=== PATIENT | female | born 1945 | race Caucasian/White ===

== ENCOUNTER → 2021-01-29 15:26 | Outpatient (CLI) | payer MEDICARE, OTHER, SELFPAY | PROVIDERS: PCP Family Medicine; Visit Provider Physician Assistant | DX: N30.10 Interstitial cystitis (chronic) without hematuria (principal) | CPT/HCPCS: 87086 ==

== ENCOUNTER → 2021-03-13 12:35 | Outpatient (CLI) | payer MEDICARE, OTHER, SELFPAY | PROVIDERS: PCP Physician Assistant; Visit Provider Physician Assistant | DX: N30.10 Interstitial cystitis (chronic) without hematuria (principal); R30.0 Dysuria | CPT/HCPCS: 87077; 87086 ==

== ENCOUNTER → 2021-03-14 10:30 | Outpatient (CLI) | payer MEDICARE, OTHER, SELFPAY ==
[2021-03-14 20:04] LABS: BUN Creatinine Ratio 19.4 (6-22); Blood Urea Nitrogen 26 mg/dL (7-17); Carbon Dioxide 28 mmol/L (22-32); Chloride 105 mmol/L (98-107); Estimated Glomerular Filt Rate 38.4 mL/min (>60); Glucose 104 mg/dL (80-110); HEMOLYSIS < 15 (0-50); Potassium 4.3 mmol/L (3.4-5.1); Sodium 139 mmol/L (137-145)
[2021-03-14 20:07] LABS: Cholesterol 146 mg/dL (140-199); HDL Cholesterol 30 mg/dL (40-60); LDL Cholesterol Calculated 87 mg/dL (<100); Triglycerides 147 mg/dL (35-150)
[2021-03-14 20:09] LABS: Add Manual Diff / Slide Review NO; Basophils Absolute Auto 0 /uL (0-100); Basophils Percent Auto 0.8 % (0-2); Eosinophils Absolute Auto 100 /uL (0-450); Eosinophils Percent Auto 3.4 % (2-4); Hematocrit 35.2 % (36-46); Hemoglobin 12.2 g/dL (12.0-16.0); Lymphocytes Absolute Auto 900 /uL (1100-4500); Lymphocytes Percent Auto 25.1 % (25-40); Mean Corpuscular HGB Conc 34.6 % (30-36); Mean Corpuscular Volume 92.4 fL (80-100); Monocytes Absolute Auto 400 /uL (0-900); Neutrophils Absolute Auto 2200 /uL (1500-7000); Neutrophils Percent Auto 59.7 % (50-75); Platelet Count 209 X10^3/uL (150-400); Red Blood Cell Count 3.81 X10^6/uL (4.0-5.2); Red Cell Distribution Width 14.2 % (11.6-14.8); White Blood Cell Count 3.8 X10^3/uL (4.5-11.0)
[2021-03-14 20:12] LABS: NT-proBNP (BNP-Adult 18+) 2960 pg/mL (<450)
[2021-03-14 20:33] LABS: Thyroid Stimulating Hormone 1.48 uIU/mL (0.47-4.68)
== END ==
PROVIDERS: PCP Physician Assistant; Visit Provider Internal Medicine Cardiovascular Disease
DX: R06.00 Dyspnea, unspecified (principal); I10 Essential (primary) hypertension; I48.0 Paroxysmal atrial fibrillation; R06.02 Shortness of breath; I65.29 Occlusion and stenosis of unspecified carotid artery; D53.9 Nutritional anemia, unspecified; E78.2 Mixed hyperlipidemia
CPT/HCPCS: 80048; 80061; 83880; 84443; 85025

== ENCOUNTER → 2021-03-18 10:43 | Outpatient (CLI) | payer MEDICARE, OTHER, SELFPAY ==
[2021-03-18 20:00] LABS: COVID19 - ORCAS (NP or Nasal) Negative (Negative)
[2021-03-20 08:59] LABS: Fecal Immunochemical Test Negative (Negative)
== END ==
PROVIDERS: Physician Assistant; PCP Physician Assistant; Visit Provider Family Medicine
DX: Z20.822 Contact with and (suspected) exposure to COVID-19 (principal); D53.9 Nutritional anemia, unspecified; R06.02 Shortness of breath
CPT/HCPCS: 82274; U0003

== ENCOUNTER → 2021-03-20 09:26 | Outpatient (CLI) | payer MEDICARE, OTHER, SELFPAY ==
--- NOTE | 2021-03-21 18:27 | DI.NM.S_ITS ---
DATE OF SERVICE: 03/20/2021 PROCEDURE PERFORMED: Pharmacologic vasodilator stress and rest myocardial perfusion study with gating to assess ejection fraction and regional wall motion. ORDERING PROVIDER: Dr. Preston Jean. INDICATIONS: The patient is a 75-year-old morbidly obese female with chronic atrial fibrillation and progressive exertional dyspnea. CARDIAC STRESS: Per protocol, 0.4 mg of regadenoson was infused with a normal hemodynamic response. With this, she developed moderate dyspnea and 5/10 substernal chest discomfort that resolved in early recovery. Her resting ECG shows atrial fibrillation at [address] segments. With stress, there are no significant ST-segment shifts or arrhythmias beyond her baseline atrial fibrillation. 26.7 millicuries of technetium-99m Myoview was injected per protocol and she was imaged 20 minutes later using a gated SPECT acquisition protocol. The following day, she returned and was reinjected with an additional 26.9 millicuries of technetium-99m Myoview and was imaged 30 minutes later, again using a gated SPECT acquisition protocol. FINDINGS: 1. Raw data: There is fairly poor myocardial tracer uptake with marked breast attenuation artifact that clearly produces significant attenuation artifact. There visually appears to be significantly increased lung uptake with a lung/heart ratio of 0.49. The TID ratio was normal at 0.93. Unfortunately, the patient was unable to lie prone to assess for attenuation artifact. 2. Quantitated gated SPECT: Post-stress ejection fraction is estimated at 90%, although visually appears to likely be closer to 70 to 80% without any obvious focal wall motion abnormalities although image quality is quite poor. The resting ejection fraction is estimated at 88% and appears similar to the post-stress ejection fraction with a normal resting end-diastolic volume of 90 mL. 3. Myocardial perfusion imaging: Post-stress supine images are of fairly poor quality and show a mild perfusion defect in the mid and distal anterior wall, encompassing the majority of the distal left ventricle that would be suggestive of breast attenuation artifact. In addition, there is a mild perfusion defect throughout the inferior wall which could be diaphragmatic attenuation artifact. Unfortunately, the patient could not lie prone and therefore assessment for attenuation artifact is lacking. The resting images show some improvement in perfusion in both the anterior and more notably in the inferior segments, although a slight perfusion defect remains present in both, but likely non-specific given the poor image quality. IMPRESSION: 1. Abnormal myocardial perfusion study but with markedly reduced specificity because of poor image quality and significant attenuation artifact. 2. Partially reversible anterior defect and predominantly reversible inferior defect that could represent myocardial ischemia although specificity is quite low because of the poor image quality and there is likely significant attenuation artifact contributing to these perfusion defects. 3. Normal left ventricular systolic size and function without any obvious focal wall motion abnormality. There is fairly prominent increased lung uptake that can be a sign of pulmonary congestion; clinical correlation is recommended. 4. Provocation of dyspnea and substernal chest discomfort with regadenoson infusion but no ECG changes of ischemia or change in her baseline atrial fibrillation. Kiki Cole - MICHAEL/isela/phill doc#: [id number]/job#: [id number] dd: 03/21/2021 17:47:00 dt: 03/21/2021 18:10:00 DICTATING MD/COPIES TO: Chacorta Roldan MD; Seamus Jean MD COPIES MNE: STANLEY;
== END ==
PROVIDERS: PCP Physician Assistant; Referring Provider Internal Medicine Cardiovascular Disease; Visit Provider Internal Medicine Cardiovascular Disease
DX: R94.39 Abnormal result of other cardiovascular function study (principal); R06.00 Dyspnea, unspecified; I48.20 Chronic atrial fibrillation, unspecified; E66.01 Morbid (severe) obesity due to excess calories; N39.0 Urinary tract infection, site not specified; R10.9 Unspecified abdominal pain; K59.09 Other constipation; R19.7 Diarrhea, unspecified; Z79.01 Long term (current) use of anticoagulants
CPT/HCPCS: 51798; 78452; 81002; 87077; 87086; 93017; 99215; A9502; J2785

== ENCOUNTER → 2021-03-20 13:43 | Outpatient (CLI) | payer MEDICARE, OTHER, SELFPAY | PROVIDERS: PCP Physician Assistant; Referring Provider Urology; Visit Provider Urology | DX: N39.0 Urinary tract infection, site not specified (principal) | CPT/HCPCS: 87077; 87086 ==

== ENCOUNTER → 2021-03-26 09:24 | Outpatient (CLI) | payer MEDICARE, OTHER, SELFPAY ==
[2021-03-26 19:03] LABS: BUN Creatinine Ratio 23.4 (6-22); Blood Urea Nitrogen 33 mg/dL (7-17); Calcium 9.2 mg/dL (8.4-10.2); Carbon Dioxide 28 mmol/L (22-32); Chloride 100 mmol/L (98-107); Cholesterol 182 mg/dL (140-199); Estimated Glomerular Filt Rate 36.2 mL/min (>60); Glucose 104 mg/dL (80-110); HDL Cholesterol 35 mg/dL (40-60); HEMOLYSIS < 15 (0-50); LDL Cholesterol Calculated 111 mg/dL (<100); Potassium 3.9 mmol/L (3.4-5.1); Sodium 140 mmol/L (137-145); Triglycerides 179 mg/dL (35-150)
== END ==
PROVIDERS: Internal Medicine Cardiovascular Disease; PCP Physician Assistant
DX: I10 Essential (primary) hypertension (principal)
CPT/HCPCS: 80048; 80061

== ENCOUNTER → 2021-03-27 14:16 | Outpatient (CLI) | payer MEDICARE, OTHER, SELFPAY ==
[2021-03-27 19:21] LABS: Appearance Urine UA CLEAR; Bilirubin Urine UA NEGATIVE (NEGATIVE); Color Urine UA YELLOW; Glucose Urine UA TRACE g/dL (Negative); Ketones Urine UA NEGATIVE (NEGATIVE); Leukocyte Esterase Urine UA TRACE (NEGATIVE); Nitrite Urine UA NEGATIVE (Negative); Occult Blood Urine UA NEGATIVE (Negative); Protein Urine UA NEGATIVE (Negative); Urobilinogen Urine UA 0.2 E.U./dL (0.2)
[2021-03-27 19:29] LABS: pH Urine UA 5.5 (4.5-8.0)
[2021-03-27 19:39] LABS: Bacteria Urine Moderate (10-30); Culture Indicated Urine Specimen Cultured; RBC Urine 0-1/HPF (0-5/HPF); Squamous Epithelial Cell Urine 1-5 /HPF (0-5/HPF); WBC Urine 5-10/HPF (0-5/HPF)
== END ==
PROVIDERS: PCP Physician Assistant; Visit Provider Urology
DX: R30.0 Dysuria (principal)
CPT/HCPCS: 81001; 87086

== ENCOUNTER → 2021-04-03 14:25 | Outpatient (CLI) | payer MEDICARE, OTHER, SELFPAY ==
[2021-04-03 19:06] LABS: Bacteria Urine None Seen; RBC Urine None Seen (0-5/HPF); WBC Urine None Seen (0-5/HPF)
[2021-04-03 19:09] LABS: Appearance Urine UA CLEAR; Bilirubin Urine UA NEGATIVE (NEGATIVE); Color Urine UA YELLOW; Glucose Urine UA NEGATIVE (Negative); Ketones Urine UA NEGATIVE (NEGATIVE); Leukocyte Esterase Urine UA NEGATIVE (NEGATIVE); Nitrite Urine UA NEGATIVE (Negative); Occult Blood Urine UA NEGATIVE (Negative); Protein Urine UA NEGATIVE (Negative); Urobilinogen Urine UA 0.2 E.U./dL (0.2)
[2021-04-03 19:37] LABS: Culture Indicated Urine Cult Not Indicated; Squamous Epithelial Cell Urine 0-1 /HPF (0-5/HPF)
== END ==
PROVIDERS: PCP Physician Assistant; Visit Provider Urology
DX: N39.0 Urinary tract infection, site not specified (principal); R30.0 Dysuria
CPT/HCPCS: 81001

== ENCOUNTER → 2021-04-08 10:32 | Outpatient (CLI) | payer MEDICARE, OTHER, SELFPAY ==
--- NOTE | 2021-04-08 10:38 | DI.CT.S_ITS ---
PROCEDURE: CT ABDOMEN PELVIS WO/W CON INDICATIONS: Dysuria TECHNIQUE: Optional 5 mm thick noncontrast images acquired from the diaphragm to the symphysis pubis. After the administration of intravenous contrast, 5 mm thick images acquired from the diaphragm to the symphysis pubis after a 10-minute delay. 2 mm thick coronal and sagittal reformats were then performed of the kidneys and ureters. For radiation dose reduction, the following was used: automated exposure control, adjustment of mA and/or kV according to patient size. COMPARISON: None. FINDINGS: Image quality: Excellent. Lung bases: Right hemidiaphragm elevation and right basilar atelectasis. Heart size is normal. Urinary system: Both kidneys are normal in size, without hydronephrosis or nephrolithiasis on pre-contrast images. No perinephric fat stranding. There is normal bilateral renal enhancement. There is a 0.9 cm exophytic cyst in right kidney. Tiny indeterminate low-density cortical nodules bilaterally are also likely cysts. Renal calyces appear normal in morphology when filled with contrast. Opacified portions of both ureters demonstrate normal caliber. Bladder wall thickness is normal. No calcified bladder stones. Other solid organs: Liver is normal in size and enhancement. Gallbladder contains gallstones. No gallbladder wall thickening or pericholecystic fluid. Hepatic steatosis. Biliary system is non dilated. Pancreas enhances normally. Spleen is normal in size and enhancement. No adrenal nodules. Peritoneum and bowel: Bowel loops demonstrate normal wall thickness and caliber. No free fluid or air. Nodes and vessels: No retroperitoneal or mesenteric adenopathy by size criteria. Aorta and inferior vena cava are normal in size. Abdominal wall: Small fat containing ventral hernia. Pelvis: Uterus and ovaries are normal. No pathologic free pelvic fluid. No inguinal hernias or adenopathy. Bones: No suspicious bony lesions. No vertebral body compression fractures. Left hip arthroplasty with prosthesis causing metallic artifacts. IMPRESSION: 1. There are bilateral renal cysts. No renal stones or hydronephrosis. 2. Cholelithiasis. 3. Right hemidiaphragm elevation and right basilar atelectasis. Dictated by: Roge aRi M.D. on 04/08/2021 at 11:27 Approved by: Roge Rai M.D. on 04/08/2021 at 11:35
== END ==
PROVIDERS: PCP Physician Assistant; Referring Provider Urology; Visit Provider Urology
DX: R30.0 Dysuria (principal); N28.1 Cyst of kidney, acquired; K80.20 Calculus of gallbladder without cholecystitis without obstruction; J98.11 Atelectasis; N95.2 Postmenopausal atrophic vaginitis; N39.0 Urinary tract infection, site not specified; K59.09 Other constipation
CPT/HCPCS: 52000; 74178; 99212; Q9967

== ENCOUNTER → 2021-04-30 10:47 | Outpatient (CLI) | payer MEDICARE, OTHER, SELFPAY ==
[2021-04-30 21:01] LABS: COVID19 - ORCAS (NP or Nasal) Negative (Negative)
== END ==
PROVIDERS: PCP Physician Assistant; Visit Provider Physician Assistant
DX: Z20.822 Contact with and (suspected) exposure to COVID-19 (principal)
CPT/HCPCS: C9803; U0003

== ENCOUNTER → 2021-06-03 12:31 | Outpatient (CLI) | payer MEDICARE, OTHER, SELFPAY | PROVIDERS: PCP Physician Assistant; Visit Provider Family Medicine | DX: N39.0 Urinary tract infection, site not specified (principal) | CPT/HCPCS: 87077; 87086; 87186 ==

== ENCOUNTER → 2021-06-04 08:41 | Outpatient (CLI) | payer MEDICARE, OTHER, SELFPAY ==
--- NOTE | 2021-06-04 08:45 | DI.CT.S_ITS ---
PROCEDURE: CT CHEST W CON INDICATIONS: Elevated R Hemidiaphram and shortness of breath. TECHNIQUE: After the administration of intravenous contrast, 5 mm thick sections acquired from the pulmonary apices to the posterior costophrenic angles. 1 mm axial lung, 5 mm thick coronal and sagittal reformats and 7 mm axial MIP were acquired. For radiation dose reduction, the following was used: automated exposure control, adjustment of mA and/or kV according to patient size. COMPARISON: [facility], CT, CT ABDOMEN PELVIS WO/W CON, 04/08/2021, 10:48. FINDINGS: Image quality: Excellent. Lungs and pleura: Eventration of right hemidiaphragm with associated right basilar atelectasis. 3 mm pulmonary nodule, right upper lobe, image 127/4. Central and peripheral airways are patent and normal in caliber. Mediastinum: Heart size is normal. No pericardial effusion. No mediastinal or hilar adenopathy by size criteria. Thoracic aorta and central pulmonary arteries are normal in size. Esophagus is normal in caliber. No hiatal hernia. Bones and chest wall: No suspicious bony lesions. No vertebral body compression fractures. No axillary or supraclavicular adenopathy by size criteria. Thyroid gland 4 . Abdomen: Mild hepatic steatosis. Multiple gallbladder stones. IMPRESSION: 1. Eventration of right hemidiaphragm with associated right basilar atelectasis. 2. No evidence of acute pulmonary process. 3. Solitary 3 mm right upper lobe pulmonary nodule. Please see chart below for nodule follow-up recommendations. Fleischner Society criteria for SOLID lung nodule followup. Nodule size (mm)Low-risk patientHigh-risk patient<6 (single or multiple)No routine followup.Optional CT at 12 months. 6-8 (single or multiple)CT at 6-12 months, then optional CT at 18-24 mo.CT at 6-12 months, then CT at 18-24 months. >8 (single)CT at 3 months, PET-CT, or biopsy. Same as for low-risk pts. >8 (multiple)CT at 3-6 months, then optional CT at 18-24 mo.CT at 3-6 months, then CT at 18-24 months. Fleischner Society criteria for SUB-SOLID lung nodule followup. Solitary pure ground-glass nodules<6 mm (ground glass or part solid)No followup needed. 6 mm or larger (ground glass)CT at 6-12 months to confirm persistence, then CT every 2 years until 5 years.6 mm or larger (part solid)CT at 3-6 months to confirm persistence, then annual CT until 5 years if unchanged and solid component remains <6 mm. Multiple sub-solid nodules<6 mmCT at 3-6 months, then CT consider at 2 & 4 years for high risk patients. [address] at 3-6 months. Subsequent management based on most suspicious lesions. Recommendations do not apply to lung cancer screening, patients with immunosuppression, or patients with known primary cancer. Dictated by: Stanley Alvarado M.D. on 06/04/2021 at 11:04 Approved by: Stanley Alvarado M.D. on 06/04/2021 at 11:08
--- NOTE | 2021-06-04 08:45 | DI.ECHO.S_ITS ---
[facility]---------+ [facility] +---------+ : : [address] : : : : [id number] : : : : Phone: [phone]+ Echocardiogram Report + + :Name: CODI COVARRUBIAS Study Date: 06/04/2021 Height: 66 in : :[facility] ReadingLocation: Weight: 260 lb : : Gender: Female BSA: 2.2 m2 : :: 1945 Age: 76 yrs BP: 125/85 mmHg: :Reason For Study: CLINICAL SYMPTOMS OF PROGRESSIVE CONGESTIVE : :HEART FAILURE : :Ordering Physician: KARELY, : :JACOB Performed By: Lydia Cline : :Referring: JACOB CALI : + + Interpretation Summary The ejection fraction is estimated to be 60-65%. There is no significant valvular heart disease. Procedure: A two-dimensional transthoracic echocardiogram with color flow and Doppler was performed. The study quality was technically difficult. There is no prior echocardiogram noted for this patient. The patient was in atrial fibrillation with heart rates between 53-65 bpm during the exam. Left Ventricle: The left ventricle is normal in size and wall thickness. The ejection fraction is estimated to be 60-65%. Left ventricular wall motion is normal. Diastolic function could not be accurately assessed due to atrial fibrillation. Right Ventricle: The right ventricle is not well visualized. The right ventricular systolic function is normal. Atria: The left atrium is borderline dilated. Right atrial size is normal. There is no Doppler evidence for an interatrial shunt. Mitral Valve: The mitral valve is normal in structure and function. There is trace mitral regurgitation. Aortic Valve: The aortic valve is slightly calcified. The aortic valve opens well. There is no aortic valve stenosis. No aortic regurgitation is present. Tricuspid Valve: The tricuspid valve is not well visualized. There is trace tricuspid regurgitation. Pulmonary artery pressures cannot be estimated because of the lack of a measurable TR jet velocity but the IVC suggests a CVP of around 3 mmHg. Pulmonic Valve: The pulmonic valve is not well visualized. There is no pulmonic valvular regurgitation. Great Vessels: The aortic root is normal size. The ascending aorta is at the upper limits of normal in size. The IVC is of normal diameter and collapses greater than 50% with a sniff. This suggests a low right atrial pressure of 3 mm Hg. Pericardium/ Pleura There is no pericardial effusion. There is no pleural effusion. MMode/2D Measurements & Calculations LVIDd: 4.0 cm LVOT diam: 1.9 cm LVIDs: 2.5 cm Ao root diam: 3.2 cm FS: 36.5 % asc Aorta Diam: 3.4 cm IVSd: 0.76 cm Ao Arch Diam (Prox Trans): 3.1 cm LVPWd: 0.74 cm LV vazquez. diameter/BSA (cm/m^2): 1.8 LV sys. diameter/BSA (cm/m^2): 1.1 LA A2 area: 21.8 cm2 RA long axis: 5.1 cm LA A4 area: 20.7 cm2 RA area: 14.4 cm2 LA length (vol): 6.0 cm RA vol: 34.4 ml LA vol: 63.8 ml RA : 15.4 ml/m2 LA vol index: 28.5 ml/m2 IVC diam: 1.7 cm TAPSE: 1.8 cm Doppler Measurements & Calculations Ao V2 max: 133.9 cm/sec LVOT Max Nain: 122.5 cm/sec Ao V2 mean: 93.8 cm/sec LV V1 max P.0 mmHg Ao max P.2 mmHg LV V1 VTI: 30.2 cm Ao mean P.9 mmHg SHELLY(I,D): 2.7 cm2 Ao V2 VTI: 31.0 cm SHELLY(V,D): 2.6 cm2 sev ratio: 0.97 SHELLY indexed to BSA (cm^2/m^2): 1.2 MV E max nain: 129.0 cm/sec PA V2 max: 106.7 cm/sec MV A max nain: 33.3 cm/sec PA V2 mean: 68.7 cm/sec MV E/A: 3.9 PA mean P.2 mmHg Med Peak E' Nain: 5.8 cm/sec E/E' med: 22.1 Lat Peak E' Nain: 7.1 cm/sec E/E' lat: 18.1 E/e' average: 20.1 MV dec time: 0.16 sec SV(LVOT): 85.2 ml Reading Physician:11:05 AM
[2021-06-04 10:00] LABS: BUN Creatinine Ratio 18.5 (6-22); Blood Urea Nitrogen 22 mg/dL (7-17); Calcium 8.8 mg/dL (8.4-10.2); Carbon Dioxide 26 mmol/L (22-32); Chloride 106 mmol/L (98-107); Estimated Glomerular Filt Rate 43.9 mL/min (>60); Glucose 98 mg/dL (80-110); HEMOLYSIS < 15 (0-50); Potassium 3.6 mmol/L (3.4-5.1); Sodium 139 mmol/L (137-145)
== END ==
PROVIDERS: Urology; PCP Family Medicine; Referring Provider Family Medicine; Visit Provider Family Medicine
DX: I13.10 Hypertensive heart and chronic kidney disease without heart failure, with stage 1 through stage 4 chronic kidney disease, or unspecified chronic kidney disease (principal); J98.6 Disorders of diaphragm; R06.00 Dyspnea, unspecified; N39.0 Urinary tract infection, site not specified; R91.8 Other nonspecific abnormal finding of lung field; K80.20 Calculus of gallbladder without cholecystitis without obstruction; K76.0 Fatty (change of) liver, not elsewhere classified
CPT/HCPCS: 36415; 71260; 80048; 93306; Q9967

== ENCOUNTER → 2021-09-10 10:52 | Outpatient (CLI) | payer MEDICARE, OTHER, SELFPAY ==
[2021-09-10 19:27] LABS: Alanine Aminotransferase 24 IU/L (<35); Albumin 4.1 g/dL (3.5-5.0); Albumin Globulin Ratio 1.5 (1.0-2.8); Alkaline Phosphatase 66 U/L (38-126); Aspartate Aminotransferase 38 IU/L (14-36); BUN Creatinine Ratio 19.6 (6-22); Bilirubin Total 0.5 mg/dL (0.2-1.3); Blood Urea Nitrogen 19 mg/dL (7-17); Calcium 9.3 mg/dL (8.4-10.2); Carbon Dioxide 33 mmol/L (22-32); Chloride 106 mmol/L (98-107); Estimated Glomerular Filt Rate 55.5 mL/min (>60); Globulin 2.8 g/dL (1.7-4.1); Glucose 105 mg/dL (80-110); HEMOLYSIS < 15 (0-50); Potassium 3.7 mmol/L (3.4-5.1); Sodium 143 mmol/L (137-145); Total Protein 6.9 g/dL (6.3-8.2)
== END ==
PROVIDERS: PCP Family Medicine; Visit Provider Family Medicine
DX: N18.32 Chronic kidney disease, stage 3b (principal); I13.10 Hypertensive heart and chronic kidney disease without heart failure, with stage 1 through stage 4 chronic kidney disease, or unspecified chronic kidney disease
CPT/HCPCS: 80053

== ENCOUNTER → 2021-10-24 10:14 | Outpatient (CLI) | payer MEDICARE, OTHER, SELFPAY ==
[2021-10-24 12:47] LABS: COVID19 -Nasal RAPID Negative (Negative)
== END ==
PROVIDERS: PCP Family Medicine; Referring Provider Internal Medicine; Visit Provider Internal Medicine
DX: Z20.822 Contact with and (suspected) exposure to COVID-19 (principal)
CPT/HCPCS: 87635; C9803

== ENCOUNTER → 2021-10-24 10:28 | Outpatient (CLI) | payer MEDICARE, OTHER, SELFPAY ==
--- NOTE | 2021-10-31 11:59 | PM.PFT.1 ---
Pulmonary Function Test Referral & Results Date Patient Seen: 10/24/21 Requesting provider: Dennis Hernadez Results: The spirometry demonstrates an FVC of 2.49 L which is 85% of predicted. The FEV1 was measured at 1.89 L which is 86% of predicted. The FEV1/FVC ratio was 76 which is 102% of predicted. Following the administration of bronchodilator there was no change. Lung volumes show an SVC of 2.93 L which is 101% of predicted. The diffusing capacity was measured at 15.36 which is 56% of predicted. No hemoglobin value was provided, so no correction for potential anemia could be made, if appropriate. The maximum voluntary ventilation was minimally reduced Interpretation: This study demonstrates normal spirometry although maximum voluntary ventilation is minimally reduced, which in the absence of any abnormalities of spirometry, suggest the possibility of neuromuscular disease Patient's diffusing capacity is moderately reduced suggesting disease at the capillary alveolar level Clinical correlation suggested
== END ==
PROVIDERS: PCP Family Medicine; Referring Provider Internal Medicine Pulmonary Disease; Visit Provider Internal Medicine Pulmonary Disease
DX: R06.2 Wheezing (principal); Z87.891 Personal history of nicotine dependence; Z20.822 Contact with and (suspected) exposure to COVID-19; J98.8 Other specified respiratory disorders; N39.0 Urinary tract infection, site not specified; R33.9 Retention of urine, unspecified; N95.2 Postmenopausal atrophic vaginitis; R31.21 Asymptomatic microscopic hematuria; K59.09 Other constipation; Z79.01 Long term (current) use of anticoagulants; Z68.41 Body mass index [BMI] 40.0-44.9, adult
CPT/HCPCS: 51798; 81002; 87635; 94060; 94618; 94726; 94729; 99214; C9803

== ENCOUNTER → 2021-12-27 08:07 | Outpatient (CLI) | payer MEDICARE, OTHER, SELFPAY ==
[2021-12-27 21:16] LABS: COVID19 - ORCAS (NP or Nasal) Negative (Negative)
== END ==
PROVIDERS: PCP Family Medicine; Visit Provider Physician Assistant Medical
DX: Z20.822 Contact with and (suspected) exposure to COVID-19 (principal); Z01.812 Encounter for preprocedural laboratory examination
CPT/HCPCS: C9803; U0003

== ENCOUNTER → 2022-03-03 07:22 | Outpatient (CLI) | payer MEDICARE, OTHER, SELFPAY ==
[2022-03-03 21:13] LABS: COVID19 - ORCAS (NP or Nasal) Negative (Negative)
== END ==
PROVIDERS: PCP Family Medicine; Visit Provider Family Medicine
DX: Z20.822 Contact with and (suspected) exposure to COVID-19 (principal); Z01.812 Encounter for preprocedural laboratory examination
CPT/HCPCS: U0003

== ENCOUNTER → 2022-03-07 11:33 | Outpatient (CLI) | payer MEDICARE, OTHER, SELFPAY ==
[2022-03-07 19:12] LABS: Add Manual Diff / Slide Review NO; Basophils Absolute Auto 0 /uL (0-100); Basophils Percent Auto 0.6 % (0-2); Eosinophils Absolute Auto 200 /uL (0-450); Eosinophils Percent Auto 3.1 % (2-4); Hematocrit 34.4 % (36-46); Hemoglobin 11.8 g/dL (12.0-16.0); Lymphocytes Absolute Auto 1000 /uL (1100-4500); Lymphocytes Percent Auto 20.9 % (25-40); Mean Corpuscular HGB Conc 34.3 % (30-36); Mean Corpuscular Hemoglobin 30.9 PG (26-34); Mean Corpuscular Volume 90.1 fL (80-100); Monocytes Absolute Auto 400 /uL (0-900); Monocytes Percent Auto 9.1 % (3-14); Neutrophils Absolute Auto 3200 /uL (1500-7000); Neutrophils Percent Auto 66.3 % (50-75); Platelet Count 209 X10^3/uL (150-400); Red Blood Cell Count 3.82 X10^6/uL (4.0-5.2); Red Cell Distribution Width 14.1 % (11.6-14.8); White Blood Cell Count 4.8 X10^3/uL (4.5-11.0)
[2022-03-07 19:12] LABS: Alanine Aminotransferase 24 IU/L (<35); Albumin 3.8 g/dL (3.5-5.0); Albumin Globulin Ratio 1.5 (1.0-2.8); Alkaline Phosphatase 70 U/L (38-126); Aspartate Aminotransferase 36 IU/L (14-36); Bilirubin Total 0.6 mg/dL (0.2-1.3); Blood Urea Nitrogen 17 mg/dL (7-17); Calcium 8.5 mg/dL (8.4-10.2); Carbon Dioxide 25 mmol/L (22-32); Chloride 107 mmol/L (98-107); Estimated Glomerular Filt Rate 54 mL/min (>60); Globulin 2.5 g/dL (1.7-4.1); Glucose 104 mg/dL (80-110); HEMOLYSIS < 15 (0-50); Potassium 4.4 mmol/L (3.4-5.1); Sodium 140 mmol/L (137-145); Total Protein 6.3 g/dL (6.3-8.2)
== END ==
PROVIDERS: PCP Family Medicine; Visit Provider Family Medicine
DX: N18.32 Chronic kidney disease, stage 3b (principal); I12.9 Hypertensive chronic kidney disease with stage 1 through stage 4 chronic kidney disease, or unspecified chronic kidney disease
CPT/HCPCS: 80053; 85025

== ENCOUNTER → 2022-07-14 10:32 | Outpatient (CLI) | payer MEDICARE, OTHER, SELFPAY ==
[2022-07-14 19:57] LABS: HEMOLYSIS < 15 (0-50); Iron 72 ug/dL (37-170)
[2022-07-14 20:01] LABS: Alanine Aminotransferase 24 IU/L (<35); Albumin 4.2 g/dL (3.5-5.0); Albumin Globulin Ratio 1.6 (1.0-2.8); Alkaline Phosphatase 77 U/L (38-126); Aspartate Aminotransferase 29 IU/L (14-36); BUN Creatinine Ratio 21.8 (6-22); Bilirubin Total 0.7 mg/dL (0.2-1.3); Blood Urea Nitrogen 26 mg/dL (7-17); Calcium 8.7 mg/dL (8.4-10.2); Carbon Dioxide 24 mmol/L (22-32); Chloride 109 mmol/L (98-107); Estimated Glomerular Filt Rate 47 mL/min (>60); Globulin 2.7 g/dL (1.7-4.1); Glucose 112 mg/dL (80-110); HEMOLYSIS < 15 (0-50); Potassium 4.2 mmol/L (3.4-5.1); Sodium 142 mmol/L (137-145); Total Protein 6.9 g/dL (6.3-8.2)
[2022-07-14 20:05] LABS: Hematocrit 35.3 % (36-46); Hemoglobin 11.9 g/dL (12.0-16.0); Mean Corpuscular HGB Conc 33.7 % (30-36); Mean Corpuscular Hemoglobin 30.4 PG (26-34); Mean Corpuscular Volume 90.2 fL (80-100); Platelet Count 230 X10^3/uL (150-400); Red Blood Cell Count 3.92 X10^6/uL (4.0-5.2); Red Cell Distribution Width 13.8 % (11.6-14.8); White Blood Cell Count 4.9 X10^3/uL (4.5-11.0)
[2022-07-14 20:07] LABS: Add Manual Diff / Slide Review YES
[2022-07-14 20:09] LABS: Percent Iron Saturation 18 % (15-50); Total Iron Binding Capacity 407 ug/dL (265-497); Transferrin 300 mg/dL (206-381)
[2022-07-14 20:29] LABS: TSH w/ Reflex to FT4 1.33 uIU/mL (0.47-4.68)
[2022-07-14 20:51] LABS: Neutrophils Absolute Manual 3136 /uL (3000-5900); RBC Morphology Normal Morphology; Total Cells Counted 100; Vitamin B12 216 pg/mL (239-931)
== END ==
PROVIDERS: PCP Family Medicine; Visit Provider Family Medicine
DX: I13.10 Hypertensive heart and chronic kidney disease without heart failure, with stage 1 through stage 4 chronic kidney disease, or unspecified chronic kidney disease (principal); D64.9 Anemia, unspecified; R31.21 Asymptomatic microscopic hematuria
CPT/HCPCS: 80053; 82607; 83540; 83550; 84443; 85007; 85025

== ENCOUNTER → 2022-11-03 10:41 | Outpatient (CLI) | payer MEDICARE, OTHER, SELFPAY ==
[2022-11-03 19:00] LABS: Add Manual Diff / Slide Review NO; Basophils Absolute Auto 0 /uL (0-100); Basophils Percent Auto 0.6 % (0-2); Eosinophils Absolute Auto 200 /uL (0-450); Hematocrit 36.2 % (36-46); Hemoglobin 12.3 g/dL (12.0-16.0); Lymphocytes Absolute Auto 800 /uL (1100-4500); Lymphocytes Percent Auto 14.8 % (25-40); Mean Corpuscular HGB Conc 33.9 % (30-36); Mean Corpuscular Hemoglobin 30.2 PG (26-34); Monocytes Absolute Auto 400 /uL (0-900); Monocytes Percent Auto 7.1 % (3-14); Neutrophils Absolute Auto 4000 /uL (1500-7000); Neutrophils Percent Auto 74.5 % (50-75); Platelet Count 213 X10^3/uL (150-400); Red Blood Cell Count 4.06 X10^6/uL (4.0-5.2); Red Cell Distribution Width 15.2 % (11.6-14.8); White Blood Cell Count 5.4 X10^3/uL (4.5-11.0)
[2022-11-03 19:08] LABS: HEMOLYSIS < 15 (0-50); Iron 68 ug/dL (37-170)
[2022-11-03 19:19] LABS: Percent Iron Saturation 17 % (15-50); Total Iron Binding Capacity 393 ug/dL (265-497); Transferrin 279 mg/dL (206-381)
[2022-11-03 19:22] LABS: BUN Creatinine Ratio 17.9 (6-22); Blood Urea Nitrogen 21 mg/dL (7-17); Calcium 8.7 mg/dL (8.4-10.2); Carbon Dioxide 23 mmol/L (22-32); Chloride 109 mmol/L (98-107); Estimated Glomerular Filt Rate 47 mL/min (>60); Glucose 165 mg/dL (80-110); HEMOLYSIS < 15 (0-50); Potassium 3.8 mmol/L (3.4-5.1); Sodium 142 mmol/L (137-145)
[2022-11-03 20:34] LABS: Vitamin B12 265 pg/mL (239-931)
== END ==
PROVIDERS: Urology; PCP Family Medicine; Visit Provider Family Medicine
DX: I10 Essential (primary) hypertension (principal); D64.9 Anemia, unspecified; N28.9 Disorder of kidney and ureter, unspecified; N18.32 Chronic kidney disease, stage 3b
CPT/HCPCS: 80048; 82607; 83540; 83550; 85025

== ENCOUNTER → 2022-12-17 10:27 | Outpatient (CLI) | payer MEDICARE, OTHER, SELFPAY ==
[2022-12-17 11:22] LABS: BUN Creatinine Ratio 24.8 (6-22); Blood Urea Nitrogen 37 mg/dL (7-17); Calcium 8.7 mg/dL (8.4-10.2); Carbon Dioxide 24 mmol/L (22-32); Chloride 104 mmol/L (98-107); Estimated Glomerular Filt Rate 36 mL/min (>60); Glucose 96 mg/dL (80-110); HEMOLYSIS 23 (0-50); Potassium 4.9 mmol/L (3.4-5.1); Sodium 136 mmol/L (137-145)
== END ==
PROVIDERS: PCP Family Medicine; Referring Provider Urology; Visit Provider Urology
DX: N18.31 Chronic kidney disease, stage 3a (principal); N95.2 Postmenopausal atrophic vaginitis; R33.9 Retention of urine, unspecified; R39.14 Feeling of incomplete bladder emptying; R79.89 Other specified abnormal findings of blood chemistry
CPT/HCPCS: 36415; 51798; 52000; 80048; 81002

== ENCOUNTER → 2022-12-22 14:28 | Outpatient (CLI) | payer MEDICARE, OTHER, SELFPAY | PROVIDERS: PCP Family Medicine; Visit Provider Family Medicine | DX: R39.9 Unspecified symptoms and signs involving the genitourinary system (principal) | CPT/HCPCS: 87086 ==

== ENCOUNTER → 2022-12-31 09:53 | Outpatient (CLI) | payer MEDICARE, OTHER, SELFPAY ==
[2022-12-31 19:38] LABS: Add Manual Diff / Slide Review NO; Basophils Absolute Auto 0 /uL (0-100); Basophils Percent Auto 0.5 % (0-2); Eosinophils Absolute Auto 100 /uL (0-450); Eosinophils Percent Auto 2.7 % (2-4); Hematocrit 34.8 % (36-46); Hemoglobin 12.2 g/dL (12.0-16.0); Lymphocytes Absolute Auto 800 /uL (1100-4500); Lymphocytes Percent Auto 16.8 % (25-40); Mean Corpuscular HGB Conc 35.2 % (30-36); Mean Corpuscular Hemoglobin 31.2 PG (26-34); Mean Corpuscular Volume 88.7 fL (80-100); Monocytes Absolute Auto 400 /uL (0-900); Monocytes Percent Auto 8.6 % (3-14); Neutrophils Absolute Auto 3500 /uL (1500-7000); Neutrophils Percent Auto 71.4 % (50-75); Platelet Count 222 X10^3/uL (150-400); Red Blood Cell Count 3.92 X10^6/uL (4.0-5.2); Red Cell Distribution Width 14.3 % (11.6-14.8); White Blood Cell Count 4.9 X10^3/uL (4.5-11.0)
[2022-12-31 19:52] LABS: Alanine Aminotransferase 27 IU/L (<35); Albumin 4.1 g/dL (3.5-5.0); Albumin Globulin Ratio 1.5 (1.0-2.8); Alkaline Phosphatase 71 U/L (38-126); Aspartate Aminotransferase 32 IU/L (14-36); BUN Creatinine Ratio 19.2 (6-22); Bilirubin Total 0.9 mg/dL (0.2-1.3); Blood Urea Nitrogen 24 mg/dL (7-17); Calcium 8.9 mg/dL (8.4-10.2); Carbon Dioxide 24 mmol/L (22-32); Chloride 105 mmol/L (98-107); Cholesterol 132 mg/dL (140-199); Estimated Glomerular Filt Rate 44 mL/min (>60); Globulin 2.7 g/dL (1.7-4.1); Glucose 102 mg/dL (80-110); HDL Cholesterol 34 mg/dL (40-60); HEMOLYSIS < 15 (0-50); LDL Cholesterol Calculated 76 mg/dL (<100); Potassium 4.2 mmol/L (3.4-5.1); Sodium 137 mmol/L (137-145); Total Protein 6.8 g/dL (6.3-8.2); Triglycerides 109 mg/dL (35-150)
[2022-12-31 20:20] LABS: TSH w/ Reflex to FT4 1.47 uIU/mL (0.47-4.68)
[2022-12-31 20:38] LABS: Vitamin B12 386 pg/mL (239-931)
[2022-12-31 21:00] LABS: Creatinine Urine Random 40.4 mg/dL
[2022-12-31 21:05] LABS: Microalbumin Urine Random < 0.6 mg/dL (0-1.6)
[2023-01-01 23:36] LABS: x Labcorp Estim. Avg Glu (eAG) 108 mg/dL (.); x Labcorp Hemoglobin A1c 5.4 % (4.8-5.6)
== END ==
PROVIDERS: PCP Family Medicine; Visit Provider Family Medicine
DX: I10 Essential (primary) hypertension (principal); D64.9 Anemia, unspecified; E11.65 Type 2 diabetes mellitus with hyperglycemia; E78.5 Hyperlipidemia, unspecified
CPT/HCPCS: 80053; 80061; 82043; 82570; 82607; 83036; 84443; 85025

== ENCOUNTER → 2023-02-04 13:07 | Outpatient (CLI) | payer MEDICARE, OTHER, SELFPAY ==
[2023-02-04 19:41] LABS: BUN Creatinine Ratio 11.2 (6-22); Blood Urea Nitrogen 14 mg/dL (7-17); Calcium 8.9 mg/dL (8.4-10.2); Carbon Dioxide 27 mmol/L (22-32); Chloride 100 mmol/L (98-107); Estimated Glomerular Filt Rate 44 mL/min (>60); Glucose 118 mg/dL (80-110); HEMOLYSIS < 15 (0-50); Potassium 4.5 mmol/L (3.4-5.1); Sodium 136 mmol/L (137-145)
== END ==
PROVIDERS: PCP Family Medicine; Visit Provider Family Medicine
DX: N18.31 Chronic kidney disease, stage 3a (principal)
CPT/HCPCS: 80048

== ENCOUNTER → 2023-03-26 10:36 | Outpatient (CLI) | payer MEDICARE, OTHER, SELFPAY | PROVIDERS: PCP Family Medicine; Visit Provider Physician Assistant Medical | DX: N39.0 Urinary tract infection, site not specified (principal) | CPT/HCPCS: 87086 ==

== ENCOUNTER → 2023-04-13 10:56 | Outpatient (CLI) | payer MEDICARE, OTHER, SELFPAY ==
[2023-04-13 19:59] LABS: Add Manual Diff / Slide Review NO; Basophils Absolute Auto 0 /uL (0-100); Basophils Percent Auto 0.8 % (0-2); Eosinophils Absolute Auto 200 /uL (0-450); Hematocrit 33.7 % (36-46); Hemoglobin 11.9 g/dL (12.0-16.0); Lymphocytes Absolute Auto 1000 /uL (1100-4500); Lymphocytes Percent Auto 22.5 % (25-40); Mean Corpuscular HGB Conc 35.4 % (30-36); Mean Corpuscular Hemoglobin 32.1 PG (26-34); Mean Corpuscular Volume 90.9 fL (80-100); Monocytes Absolute Auto 400 /uL (0-900); Monocytes Percent Auto 8.5 % (3-14); Neutrophils Absolute Auto 2700 /uL (1500-7000); Neutrophils Percent Auto 63.2 % (50-75); Platelet Count 241 X10^3/uL (150-400); Red Blood Cell Count 3.71 X10^6/uL (4.0-5.2); Red Cell Distribution Width 14.1 % (11.6-14.8); White Blood Cell Count 4.3 X10^3/uL (4.5-11.0)
[2023-04-13 20:07] LABS: BUN Creatinine Ratio 19.9 (6-22); Blood Urea Nitrogen 28 mg/dL (7-17); Calcium 8.8 mg/dL (8.4-10.2); Carbon Dioxide 26 mmol/L (22-32); Chloride 105 mmol/L (98-107); Estimated Glomerular Filt Rate 38 mL/min (>60); Glucose 103 mg/dL (80-110); HEMOLYSIS < 15 (0-50); Potassium 4.6 mmol/L (3.4-5.1); Sodium 138 mmol/L (137-145)
[2023-04-13 23:35] LABS: Hemoglobin A1C% w Est Avg Glu 4.8 % (4.0-6.0)
== END ==
PROVIDERS: PCP Family Medicine; Visit Provider Family Medicine
DX: E11.9 Type 2 diabetes mellitus without complications (principal); I10 Essential (primary) hypertension; D64.9 Anemia, unspecified; E87.1 Hypo-osmolality and hyponatremia; N18.31 Chronic kidney disease, stage 3a
CPT/HCPCS: 80048; 83036; 85025

== ENCOUNTER → 2023-05-14 08:52 | Outpatient (CLI) | payer MEDICARE, OTHER, SELFPAY ==
--- NOTE | 2023-05-14 08:53 | DI.CT.S_ITS ---
PROCEDURE: CT CHEST WO CON INDICATIONS: Follow-up solitary pulmonary nodule right upper TECHNIQUE: Noncontrast 5 mm thick sections acquired from the pulmonary apices to the posterior costophrenic angles. 1 mm lung window, 5 mm thick coronal and sagittal and 7 mm axial MIP reformats were then acquired. For radiation dose reduction, the following was used: automated exposure control, adjustment of mA and/or kV according to patient size. COMPARISON: [facility], CT, CT CHEST W [facility], 06/04/2021, 10:27. FINDINGS: Image quality: Excellent. Lungs and pleura: There is a stable 3 mm right upper lobe nodule, as on series 3, image 122. Within the right lower lobe, there is an additional soft tissue nodule seen measuring 4-5 mm, as on series 3, image 144. This nodule is unchanged in retrospect compared to the prior. No new pulmonary nodules are seen. No acute air space opacities. Mild dependent atelectasis can be seen at the right lung base. There is elevation of the right hemidiaphragm. No pleural effusions or pneumothorax. Central and peripheral airways are patent and normal in caliber. Mediastinum: There is a metallic cardiac device seen, which has been placed since the prior CT. Heart size is normal. No pericardial effusion. No mediastinal adenopathy by size criteria. Thoracic aorta and central pulmonary arteries are normal in size. Esophagus is normal in caliber. No hiatal hernia. Bones and chest wall: No suspicious bony lesions. No vertebral body compression fractures. Age-appropriate bony degenerative changes are seen. Accentuated thoracic kyphosis is seen. No axillary or supraclavicular adenopathy by size criteria. Thyroid gland demonstrates no significant abnormality. Abdomen: Gallstones are seen within the gallbladder. The visualized portions of the upper abdominal structures are otherwise unremarkable for imaging technique. IMPRESSION: Stable right-sided pulmonary nodules. No specific imaging follow-up is recommended. There is again seen an elevated right hemidiaphragm, with mild atelectasis at the right lung base. Additional findings: Metallic cardiac device Gallstones Dictated by: Atif Henderson M.D. on 05/14/2023 at 9:35 Approved by: Atif Henderson M.D. on 05/14/2023 at 9:39
== END ==
PROVIDERS: PCP Family Medicine; Referring Provider Family Medicine; Visit Provider Family Medicine
DX: R91.8 Other nonspecific abnormal finding of lung field (principal); K80.20 Calculus of gallbladder without cholecystitis without obstruction; G47.33 Obstructive sleep apnea (adult) (pediatric); I48.20 Chronic atrial fibrillation, unspecified; J98.6 Disorders of diaphragm; I10 Essential (primary) hypertension
CPT/HCPCS: 71250; 99214

== ENCOUNTER → 2023-05-20 11:50 | Outpatient (CLI) | payer MEDICARE, OTHER, SELFPAY ==
[2023-05-20 19:53] LABS: Reticulocyte Count, Percent 1.6 % (1.1-2.6)
[2023-05-20 20:10] LABS: Alanine Aminotransferase 24 IU/L (<35); Albumin 3.8 g/dL (3.5-5.0); Albumin Globulin Ratio 1.4 (1.0-2.8); Alkaline Phosphatase 69 U/L (38-126); Aspartate Aminotransferase 33 IU/L (14-36); BUN Creatinine Ratio 13.7 (6-22); Bilirubin Total 0.9 mg/dL (0.2-1.3); Blood Urea Nitrogen 14 mg/dL (7-17); Calcium 9.1 mg/dL (8.4-10.2); Carbon Dioxide 27 mmol/L (22-32); Chloride 105 mmol/L (98-107); Cholesterol 142 mg/dL (140-199); Estimated Glomerular Filt Rate 56 mL/min (>60); Globulin 2.8 g/dL (1.7-4.1); Glucose 93 mg/dL (80-110); HDL Cholesterol 35 mg/dL (40-60); HEMOLYSIS < 15 (0-50); LDL Cholesterol Calculated 85 mg/dL (<100); Potassium 4.3 mmol/L (3.4-5.1); Sodium 137 mmol/L (137-145); Total Protein 6.6 g/dL (6.3-8.2); Triglycerides 110 mg/dL (35-150)
[2023-05-20 20:13] LABS: Add Manual Diff / Slide Review NO; Basophils Absolute Auto 0 /uL (0-100); Basophils Percent Auto 0.6 % (0-2); Eosinophils Absolute Auto 100 /uL (0-450); Eosinophils Percent Auto 3.7 % (2-4); Hematocrit 34.8 % (36-46); Hemoglobin 11.9 g/dL (12.0-16.0); Lymphocytes Absolute Auto 800 /uL (1100-4500); Lymphocytes Percent Auto 22.7 % (25-40); Mean Corpuscular HGB Conc 34.3 % (30-36); Mean Corpuscular Hemoglobin 31.4 PG (26-34); Mean Corpuscular Volume 91.6 fL (80-100); Monocytes Absolute Auto 300 /uL (0-900); Monocytes Percent Auto 8.2 % (3-14); Neutrophils Absolute Auto 2300 /uL (1500-7000); Neutrophils Percent Auto 64.8 % (50-75); Platelet Count 238 X10^3/uL (150-400); Red Cell Distribution Width 14.1 % (11.6-14.8); White Blood Cell Count 3.5 X10^3/uL (4.5-11.0)
[2023-05-20 20:59] LABS: Vitamin B12 530 pg/mL (239-931)
== END ==
PROVIDERS: PCP Family Medicine; Visit Provider Family Medicine
DX: I10 Essential (primary) hypertension (principal); N18.9 Chronic kidney disease, unspecified; D64.9 Anemia, unspecified; D72.819 Decreased white blood cell count, unspecified; E11.9 Type 2 diabetes mellitus without complications
CPT/HCPCS: 80053; 80061; 82607; 85025; 85045

== ENCOUNTER → 2023-05-21 12:03 | Outpatient (CLI) | payer MEDICARE, OTHER, SELFPAY ==
[2023-05-21 20:54] LABS: Creatinine Urine Random 169.8 mg/dL
[2023-05-21 20:58] LABS: Microalbumi Creatinin Ratio Ur 11.1 ug/mg CR (<30); Microalbumin Urine Random 1.9 mg/dL (0-1.6)
[2023-05-21 21:28] LABS: Protein (Total) Urine Random < 5 mg/dL (0-12); Protein Creatinine Ratio Urine 0.02 GRAM/24H
[2023-05-24 07:07] LABS: Parathyroid Hormone Int 101 pg/mL (15-65)
== END ==
PROVIDERS: PCP Family Medicine; Visit Provider Internal Medicine Nephrology
DX: N18.9 Chronic kidney disease, unspecified (principal); I10 Essential (primary) hypertension; N18.31 Chronic kidney disease, stage 3a
CPT/HCPCS: 82043; 82570; 83970; 84156

== ENCOUNTER → 2023-08-03 13:01 | Outpatient (CLI) | payer MEDICARE, OTHER, SELFPAY ==
[2023-08-03 19:49] LABS: Add Manual Diff / Slide Review NO; Basophils Absolute Auto 0 /uL (0-100); Basophils Percent Auto 0.5 % (0-2); Eosinophils Absolute Auto 200 /uL (0-450); Eosinophils Percent Auto 4.7 % (2-4); Hematocrit 35.9 % (36-46); Hemoglobin 12.4 g/dL (12.0-16.0); Lymphocytes Absolute Auto 900 /uL (1100-4500); Lymphocytes Percent Auto 20.7 % (25-40); Mean Corpuscular HGB Conc 34.6 % (30-36); Mean Corpuscular Hemoglobin 30.8 PG (26-34); Monocytes Absolute Auto 400 /uL (0-900); Monocytes Percent Auto 8.3 % (3-14); Neutrophils Absolute Auto 3000 /uL (1500-7000); Neutrophils Percent Auto 65.8 % (50-75); Platelet Count 230 X10^3/uL (150-400); Red Blood Cell Count 4.03 X10^6/uL (4.0-5.2); White Blood Cell Count 4.5 X10^3/uL (4.5-11.0)
== END ==
PROVIDERS: PCP Family Medicine; Visit Provider Family Medicine
DX: D72.819 Decreased white blood cell count, unspecified (principal); D64.9 Anemia, unspecified
CPT/HCPCS: 85025

== ENCOUNTER → 2023-08-06 13:59 | Outpatient (CLI) | payer MEDICARE, OTHER, SELFPAY ==
[2023-08-06 20:42] LABS: BUN Creatinine Ratio 16.8 (6-22); Blood Urea Nitrogen 17 mg/dL (7-17); Calcium 9.1 mg/dL (8.4-10.2); Carbon Dioxide 27 mmol/L (22-32); Chloride 104 mmol/L (98-107); Estimated Glomerular Filt Rate 56 mL/min (>60); Glucose 82 mg/dL (80-110); HEMOLYSIS < 15 (0-50); Potassium 4.3 mmol/L (3.4-5.1); Sodium 138 mmol/L (137-145)
== END ==
PROVIDERS: PCP Family Medicine; Visit Provider Family Medicine
DX: N18.31 Chronic kidney disease, stage 3a (principal)
CPT/HCPCS: 80048

== ENCOUNTER → 2023-08-24 14:34 | Outpatient (CLI) | payer MEDICARE, OTHER, SELFPAY | PROVIDERS: PCP Family Medicine; Visit Provider Family Medicine | DX: R39.89 Other symptoms and signs involving the genitourinary system (principal) | CPT/HCPCS: 87077; 87086; 87186 ==

== ENCOUNTER → 2023-10-19 16:25 | Outpatient (CLI) | payer MEDICARE, OTHER, SELFPAY | PROVIDERS: PCP Family Medicine; Visit Provider Family Medicine | DX: R39.89 Other symptoms and signs involving the genitourinary system (principal) | CPT/HCPCS: 87086 ==

== ENCOUNTER → 2023-11-23 11:05 | Outpatient (CLI) | payer MEDICARE, OTHER, SELFPAY ==
[2023-11-23 19:20] LABS: Add Manual Diff / Slide Review NO; Basophils Absolute Auto 0 /uL (0-100); Basophils Percent Auto 0.8 % (0-2); Eosinophils Absolute Auto 200 /uL (0-450); Eosinophils Percent Auto 4.3 % (2-4); Hematocrit 35.5 % (36-46); Hemoglobin 12.1 g/dL (12.0-16.0); Lymphocytes Absolute Auto 800 /uL (1100-4500); Lymphocytes Percent Auto 21.2 % (25-40); Mean Corpuscular HGB Conc 34.1 % (30-36); Mean Corpuscular Hemoglobin 30.9 PG (26-34); Mean Corpuscular Volume 90.6 fL (80-100); Monocytes Absolute Auto 400 /uL (0-900); Neutrophils Absolute Auto 2400 /uL (1500-7000); Neutrophils Percent Auto 63.7 % (50-75); Platelet Count 222 X10^3/uL (150-400); Red Blood Cell Count 3.92 X10^6/uL (4.0-5.2); Red Cell Distribution Width 14.4 % (11.6-14.8); White Blood Cell Count 3.8 X10^3/uL (4.5-11.0)
[2023-11-23 19:25] LABS: Alanine Aminotransferase 19 IU/L (<35); Albumin 3.6 g/dL (3.5-5.0); Albumin Globulin Ratio 1.3 (1.0-2.8); Alkaline Phosphatase 71 U/L (38-126); Aspartate Aminotransferase 30 IU/L (14-36); Bilirubin Total 0.8 mg/dL (0.2-1.3); Blood Urea Nitrogen 15 mg/dL (7-17); Calcium 9.1 mg/dL (8.4-10.2); Carbon Dioxide 26 mmol/L (22-32); Chloride 109 mmol/L (98-107); Cholesterol 135 mg/dL (140-199); Estimated Glomerular Filt Rate 57 mL/min (>60); Globulin 2.7 g/dL (1.7-4.1); Glucose 97 mg/dL (80-110); HDL Cholesterol 41 mg/dL (40-60); HEMOLYSIS < 15 (0-50); LDL Cholesterol Calculated 76 mg/dL (<100); Potassium 4.1 mmol/L (3.4-5.1); Sodium 141 mmol/L (137-145); Total Protein 6.3 g/dL (6.3-8.2); Triglycerides 89 mg/dL (35-150)
[2023-11-23 20:14] LABS: Creatinine Urine Random 92.2 mg/dL
[2023-11-23 20:26] LABS: Microalbumin Urine Random < 0.6 mg/dL (0-1.6)
[2023-11-23 20:53] LABS: Hemoglobin A1C% w Est Avg Glu 4.8 % (4.0-6.0)
== END ==
PROVIDERS: PCP Family Medicine; Visit Provider Family Medicine
DX: E11.9 Type 2 diabetes mellitus without complications (principal); I10 Essential (primary) hypertension
CPT/HCPCS: 80053; 80061; 82043; 82570; 83036; 85025

== ENCOUNTER → 2023-11-26 08:59 | Outpatient (CLI) | payer MEDICARE, OTHER, SELFPAY ==
--- NOTE | 2023-12-02 10:40 | DIET.OUTPTC ---
Dietary Outpatient Consultation Note Consultation Date: 11/26/2023 Assessment: 78 y F referred for nutrition therapy for CKD3, weight management, and controlled DM2. Appointment was conducted over telehealth with permission and agreement from patient. Kiki reports she has been on Ozempic, but feels she is no longer losing weight on this medication. Continues to take. She is looking for help with weight loss. Diet recall: shared excel sheet with detailed record of intake Ex of 1 day provided: wakes up late 10-10:30a-B-1 slice Darian buttered toast, british virgin islander cheese, 7 grapes, 1/2 apple, decaf coffee with 2 oz cameroonian van creamer 6p-D-2 small tacos, 1/4 c black beans with sprinkle of cheese, seltzer 8-10p snack: toasted slice of baguette with british virgin islander cheese, 15 grapes, slice of baguette with honey, decaf tea with 1tsp honey * sometimes does not have snack Salts foods when cooking due to cultural preferences She would ideally like to go to bed earlier to wake up earlier 32 oz bottle x2/day of water with herbal teas or seltzer at dinner and snack. Activity: Has significant back pain, does water aerobics 3x/wk Has done chair exercises before, but finds them dull Weight history: 11/10/23: 102.115 kg : 105.687 kg 04/22/23: 107.955 kg 12/05/22: 115.014 kg BMI: 36 *11.2% weight loss in a year Lab Values: -Improvement of eGFR - 57 on 11/23/23 (; -45) -K+ WNL -A1c: 4.8% Nutrition Diagnosis: Nutrition related knowledge deficit r/t to no previous nutrition educ as evidenced by pt report in nutrition assessment Interventions: 1. Provided MNT for CKD3 and weight management -Including: balanced meals and snacks, educ on macro and micronutrients, label reading, adequate intake Goals: 1. Consistent meal/snack between breakfast and dinner or after dinner for 3 meals/snacks/day -Protein/fiber/carb balanced snack 2. 1/2 of plate or 1-2 servings non-starchy vegetables at dinner Monitoring/Evaluations: goals, related lab values, weight, diet recall Electronically Signed by: Suly Conner 12/02/23 10:40 Clinical Dietitian [address] [id number]
== END ==
LOC: DIET 12-24 08:59
PROVIDERS: PCP Family Medicine; Referring Provider Family Medicine
DX: E11.22 Type 2 diabetes mellitus with diabetic chronic kidney disease (principal); N18.31 Chronic kidney disease, stage 3a; Z68.36 Body mass index [BMI] 36.0-36.9, adult; Z71.3 Dietary counseling and surveillance; Z79.85 Long-term (current) use of injectable non-insulin antidiabetic drugs
CPT/HCPCS: 97802

== ENCOUNTER → 2024-02-16 09:30 | Outpatient (CLI) | payer MEDICARE, OTHER, SELFPAY ==
--- NOTE | 2024-02-16 09:33 | DI.RAD.S_ITS ---
PROCEDURE: XR LUMBAR SPINE MIN 4V INDICATIONS: low back pain TECHNIQUE: 5 views of the lumbar spine were acquired, including bilateral oblique views. COMPARISON: [facility] ([facility]), , XR LUMBAR SPINE 2-3V, 05/24/2021, 14:05. FINDINGS: Bones: 5 nonrib-bearing vertebrae are present. There is 6 mm anterolisthesis of L4 on L5. No vertebral body compression fractures. Degenerative endplate changes are noted at L3-4 through L5-S1 levels. No suspicious bony lesions. Soft tissues: Overlying bowel gas pattern is normal. No suspicious soft tissue calcifications. Oblique images: No pars defects. Bilateral bony foraminal stenosis at L4-5 and L5-S1 level is seen on oblique views. 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 Grade 1 anterolisthesis of L4 on L5. No acute compression fracture. No gross pars defects. Suggestion of bilateral bony foraminal stenosis at L4-5 and L5-S1 levels. Dictated by: Dallas Wyatt M.D. on 02/16/2024 at 13:28 Approved by: Dallas Wyatt M.D. on 02/16/2024 at 13:30
--- NOTE | 2024-02-16 09:33 | DI.RAD.S_ITS ---
PROCEDURE: XR CERVICAL SPINE 4V OR 5V INDICATIONS: neck pain TECHNIQUE: 5 views of the cervical spine acquired. COMPARISON: None. FINDINGS: Bones: No fractures or dislocations to the T1 level. Multilevel degenerative disc space narrowing most prominent at C4-5. Multilevel uncovertebral hypertrophy are present. Oblique images foraminal narrowing most notable on the left at C6-7 and to a lesser degree C4-5. Soft tissues: No prevertebral soft tissue swelling. IMPRESSION: Multilevel degenerative changes most severe at C4-5 and C6-7 as above. Dictated by: Yeimy Calderón M.D. on 02/16/2024 at 11:30 Approved by: Yeimy Calderón M.D. on 02/16/2024 at 11:31
== END ==
PROVIDERS: PCP Family Medicine; Referring Provider Anesthesiology; Visit Provider Anesthesiology
DX: M47.812 Spondylosis without myelopathy or radiculopathy, cervical region (principal); M48.02 Spinal stenosis, cervical region; M43.16 Spondylolisthesis, lumbar region; M51.36 Other intervertebral disc degeneration, lumbar region; M54.2 Cervicalgia; M54.50 Low back pain, unspecified
CPT/HCPCS: 72050; 72110

== ENCOUNTER → 2024-03-28 13:26 | Outpatient (CLI) | payer MEDICARE, OTHER, SELFPAY | PROVIDERS: PCP Family Medicine; Visit Provider Physician Assistant | DX: N89.8 Other specified noninflammatory disorders of vagina (principal) | CPT/HCPCS: 87661; 87798; 87801 ==

== ENCOUNTER → 2024-05-11 10:45 | Outpatient (CLI) | payer MEDICARE, OTHER, SELFPAY | PROVIDERS: PCP Family Medicine; Visit Provider Nurse Practitioner Adult Health | DX: N76.0 Acute vaginitis (principal) | CPT/HCPCS: 87798; 87801 ==

== ENCOUNTER → 2024-06-23 15:08 | Outpatient (CLI) | payer MEDICARE, OTHER, SELFPAY | PROVIDERS: PCP Family Medicine; Visit Provider Physician Assistant Medical | DX: R35.0 Frequency of micturition (principal); N39.0 Urinary tract infection, site not specified | CPT/HCPCS: 87086 ==

== ENCOUNTER 2024-08-04 13:52 | Outpatient (CLI) | payer MEDICARE, OTHER, SELFPAY ==
[2024-08-04] VITALS (9 sets, daily range): BP systolic 97–184; BP diastolic 52–72; PULSE 67–78; RESP 15–20; TEMP 36.4; O2SAT 96–99
--- NOTE | 2024-08-04 13:54 | DI.RAD.S_ITS ---
PROCEDURE: PAIN L/S FACET INJ/BLK 1ST DAPHNIE INDICATIONS: Bilateral L4-L5 and S1 medial branch blocks LA COMPARISON: None. FINDINGS/IMPRESSION: Fluoroscopic spot filming was performed to verify placement of spinal needles at the bilateral L4-L5 and S1 level(s), as labeled on the films. Appropriate location(s) of the needle tip(s) was confirmed by injection of iodinated contrast. Dictated by: Dimitrios Ross M.D. on 08/05/2024 at 21:24 Approved by: Dimitrios Ross M.D. on 08/05/2024 at 21:25
[2024-08-04] MEDS: MIDAZOLAM 2 MG/2 ML VIAL IV (15:15)
[2024-08-04] MEDS: LIDOCAINE 1% 20 ML 5 ML INJ (15:27)
[2024-08-04] MEDS: BUPIVACAINE 0.5% (PF) 10 ML VIAL 5 ML INJ (15:28)
[2024-08-04] MEDS: iopamidoL 15 ML VIAL 3 ML INJ (15:28)
--- NOTE | 2024-08-04 15:41 | PM.PROC.IR.1 ---
Date/Time/Diagnoses Date of procedure: 08/04/24 Time of procedure: 15:41 Pre-procedure diagnosis: 1. FACET ARTHROPATHY Post-procedure diagnosis: same Procedure Notes Procedure: 1. BILATERAL- L4, L5 and S1 DIAGNOSTIC MB BLOCKS with LA Anesthetic Indications: Kiki is referred by Dr. Ruiz for treatment of Bilateral Axial LBP. Physician: Chacorta Tierney Total Fluoroscopy time (seconds): 11 Total sedation minutes: 17 Complications: none Procedure in detail & Post-procedure care: DESCRIPTION OF PROCEDURE Fluoroscopically guided, contrast-controlled bilateral L4, L5 and S1 medial branch blocks with 0.5cc of 0.5% Marcaine. Following review of allergy and review of potential side effects and complications, including, but not necessarily limited to, infection, allergic reaction, local tissue breakdown, nerve injury, paralysis, stroke and possible , the patient indicated that the patient understood and agreed to proceed. An informed consent document was signed by the patient, witnessed by a nurse, and placed in the patient's chart. After review of previous anaesthesic history and IV conscious sedation the patient was deemed safe to proceed with today's procedure with IV conscious sedation as ASA class II designation. Safety time-out was performed to confirm patient ID, procedure to be performed and site of procedure. IV sedation was accomplished with a combination of 2mg of Versed was administered by the RN after DO order, titrated to patient comfort during the course of the procedure while the patient remained responsive to all verbal commands In the prone position, following sterile prep and drape of the lumbar region, the right L4, L5 and S1 anatomical location of the medial branch of the dorsal ramus was identified fluoroscopically. Subsequently an anesthetic skin wheal using 1% lidocaine solution was initiated at each of the anatomical spots. Subsequently then a 22-gauge 3.5-inch spinal needle was atraumatically introduced and advanced under fluoroscopic guidance at each of the corresponding sites at the right L4, L5 and S1 MB. After negative aspiration, 0.2cc of Isovue 200 was injected, confirming placement without vascular or intrathecal uptake. Subsequently then 0.5cc of 0.5% Marcaine solution was injected at each of the corresponding sites at the right L4, L5 and S1 medial branch locations. The identical procedure was replicated on the left. The patient tolerated the procedure well without signs or symptoms of complications prior to transfer to the recovery area continued monitoring without incident. Post-procedure, the patient was monitored initiating provocative activities to measure the amount of relief from block of the facetogenic pain. The patient reported a VAS of 7 prior to the procedure and a post-procedure VAS of 1. It has been a pleasure to assist in the diagnostic and therapeutic care of your patient. POST OP INSTRUCTIONS The patient was provided with a Pain Log to complete over the next several hours and subsequent days prior to the patient's follow up with the ordering physician. If the patient has dining service inspector relief to the solution applied, then they may be a candidate for medial branch rhizotomy. The patient is aware, was provided, once again, with a Pain Log and will follow up with the referring physician for review and clinical correlation
== END 2024-08-04 15:45 | disposition home or self-care (01) ==
PROVIDERS: PCP Family Medicine; Referring Provider Physical Medicine & Rehabilitation; Visit Provider Physical Medicine & Rehabilitation
DX: M47.816 Spondylosis without myelopathy or radiculopathy, lumbar region (principal); M47.817 Spondylosis without myelopathy or radiculopathy, lumbosacral region
CPT/HCPCS: 64493; 64494; 99152; J2250

== ENCOUNTER 2024-10-18 09:13 | Outpatient (CLI) | payer MEDICARE, OTHER, SELFPAY ==
[2024-10-18] VITALS (9 sets, daily range): BP systolic 120–148; BP diastolic 56–83; PULSE 71–83; RESP 14–20; TEMP 36.4; O2SAT 94–99
[2024-10-18] MEDS: MIDAZOLAM 2 MG/2 ML VIAL IV (10:47)
[2024-10-18] MEDS: iopamidoL 15 ML VIAL 3 ML INJ (10:51)
[2024-10-18] MEDS: LIDOCAINE 1% 20 ML 5 ML INJ (10:52)
[2024-10-18] MEDS: LIDOCAINE 2% INJ SDV 5ML 1 ML INJ (10:52)
--- NOTE | 2024-10-18 11:07 | PM.PROC.IR.1 ---
Date/Time/Diagnoses Date of procedure: 10/18/24 Time of procedure: 11:07 Pre-procedure diagnosis: 1. FACET ARTHROPATHY Post-procedure diagnosis: same Procedure Notes Procedure: 1. BILATERAL- L4, L5 and S1 DIAGNOSTIC MB BLOCKS with SA Anesthetic Indications: Kiki is referred by Dr. Blanco for treatment of Bilateral Axial LBP. Physician: Chacorta Tierney Total Fluoroscopy time (seconds): 8 Total sedation minutes: 15 Complications: none Procedure in detail & Post-procedure care: DESCRIPTION OF PROCEDURE Fluoroscopically guided, contrast-controlled bilateral L4, L5 and S1 medial branch blocks with 0.5cc of 2% Lidocaine. Following review of allergy and review of potential side effects and complications, including, but not necessarily limited to, infection, allergic reaction, local tissue breakdown, nerve injury, paralysis, stroke and possible , the patient indicated that the patient understood and agreed to proceed. An informed consent document was signed by the patient, witnessed by a nurse, and placed in the patient's chart. After review of previous anaesthesic history and IV conscious sedation the patient was deemed safe to proceed with today's procedure with IV conscious sedation as ASA class II designation. Safety time-out was performed to confirm patient ID, procedure to be performed and site of procedure. IV sedation was accomplished with a combination of 2mg of Versed was administered by the RN after DO order, titrated to patient comfort during the course of the procedure while the patient remained responsive to all verbal commands In the prone position, following sterile prep and drape of the lumbar region, the right L4, L5 and S1 anatomical location of the medial branch of the dorsal ramus was identified fluoroscopically. Subsequently an anesthetic skin wheal using 1% lidocaine solution was initiated at each of the anatomical spots. Subsequently then a 22-gauge 3.5-inch spinal needle was atraumatically introduced and advanced under fluoroscopic guidance at each of the corresponding sites at the right L4, L5 and S1 MB. After negative aspiration, 0.2cc of Isovue 200 was injected, confirming placement without vascular or intrathecal uptake. Subsequently then 0.5cc of 2% Lidocaine solution was injected at each of the corresponding sites at the right L4, L5 and S1 medial branch locations. The identical procedure was replicated on the left. The patient tolerated the procedure well without signs or symptoms of complications prior to transfer to the recovery area continued monitoring without incident. Post-procedure, the patient was monitored initiating provocative activities to measure the amount of relief from block of the facetogenic pain. The patient reported a VAS of 7 prior to the procedure and a post-procedure VAS of 1. It has been a pleasure to assist in the diagnostic and therapeutic care of your patient. POST OP INSTRUCTIONS The patient was provided with a Pain Log to complete over the next several hours and subsequent days prior to the patient's follow up with the ordering physician. If the patient has psychological stress evaluator relief to the solution applied, then they may be a candidate for medial branch rhizotomy. The patient is aware, was provided, once again, with a Pain Log and will follow up with the referring physician for review and clinical correlation
== END 2024-10-18 11:20 | disposition home or self-care (01) ==
PROVIDERS: PCP Family Medicine; Referring Provider Physical Medicine & Rehabilitation; Visit Provider Physical Medicine & Rehabilitation
DX: M47.816 Spondylosis without myelopathy or radiculopathy, lumbar region (principal); M47.817 Spondylosis without myelopathy or radiculopathy, lumbosacral region
CPT/HCPCS: 64493; 64494; 99152; J2250

== ENCOUNTER 2024-12-15 08:43 | Outpatient (CLI) | payer MEDICARE, OTHER, SELFPAY ==
[2024-12-15] VITALS (13 sets, daily range): BP systolic 118–183; BP diastolic 65–90; PULSE 63–85; RESP 14–16; TEMP 36.1; O2SAT 96–99
[2024-12-15] MEDS: MIDAZOLAM 2 MG/2 ML VIAL IV (11:50)
[2024-12-15] MEDS: BUPIVACAINE 0.5% (PF) 10 ML VIAL 5 ML INJ (11:54)
[2024-12-15] MEDS: LIDOCAINE 1% 20 ML 5 ML INJ (11:55)
--- NOTE | 2024-12-15 12:44 | P.PCN_ITS ---
Date/Time/Diagnoses Date of procedure: 12/15/24 Time of procedure: 12:44 Pre-procedure diagnosis: 1. RECALCITRANT FACET ARTHROPATHY Post-procedure diagnosis: same Procedure Notes Procedure: 1. BILATERAL L4 AND L5 MEDIAL BRANCH RADIOFREQUENCY NEUROTOMY AND S1 DORSAL RAMUS BRANCH RADIOFREQUENCY NEUROTOMY Indications: Kiki is referred by Dr. Blanco for treatment of facet arthropathy. Physician: Chacorta Tierney Total Fluoroscopy time (seconds): 22 Total sedation minutes: 36 Complications: none Procedure in detail & Post-procedure care: DESCRIPTION OF PROCEDURE Bilateral L4 and L5 medial branch radiofrequency neurotomy and bilateral S1 dorsal ramus radiofrequency neurotomy under fluoroscopy with conscious sedation. The patient is well known to this clinic having undergone previous facet injections with good but temporary relief. The patient has experienced appropriate, concordant relief with previous facet and median branch blocks but the patient's pain has been recalcitrant to further conservative measures. Therefore, based upon the patient's relief and persistent symptoms, the patient is considered an appropriate candidate for facet rhizotomy. All of the patient's questions regarding the risks versus benefits of the procedure, including, but not limited to, bleeding, infection, temporary as well as lasting nerve injury, paralysis, stroke, and , as well treatment alternatives were answered to satisfaction. After obtaining informed consent, denial of pertinent drug allergies, as well as being made aware of the potential risks of bleeding, infection, spinal cord trauma, paralysis, temporary and permanent nerve damage, seizure, stroke, and possible , the patient was brought to the fluoroscopy suite and positioned prone on the fluoroscopy table. The lumbar region was prepped in usual sterile fashion and covered with a fenestrated drape in the usual sterile fashion. Appropriate monitors applied including pulse oximeter, pulse, and blood pressure for regular monitoring throughout the procedure. After review of previous anaesthesic history and IV conscious sedation the patient was deemed safe to proceed with today's procedure with IV conscious sedation as ASA class II designation. Safety time-out was performed to confirm patient ID, procedure to be performed and site of procedure. IV sedation was accomplished with a combination of 2mg of Versed administered by the RN after DO order, titrated to patient comfort during the course of the procedure while the patient remained responsive to all verbal commands. After local infiltration using 1% lidocaine, under fluoroscopic guidance, a 10- cm RF insulated needle with a 10-mm active tip was positioned parallel to the junction of the right sacral ala and the superior articulating process where the S1 dorsal ramus resides. Needle placement was confirmed with motor stimulation of .5v on the right which produced local stimulation without radicular component. The stimulation was then increased to 2v with, once again, only local multifidus stimulation without radicular component. The needle was then removed and the identical procedure was performed along the length of the right L5 medial branch with motor stimulation at .7v on the right. The identical procedure was once again performed along the length of the right L4 medial branch with motor stimulation of .5v on the right. The medial branches were then anesthetised with 0.5% Marcaine. This was then followed by two discreet lesions performed at 80 degrees Celsius for 90 seconds each. The identical procedure was repeated on the left. The patient tolerated the procedure well without signs or symptoms of complications prior to transfer to the recovery area continued monitoring without incident. The patient was then transferred to the recovery area where they were observed for an appropriate period of time after the injection. The patient reported a VAS score of 9 prior to the procedure and a post-procedure VAS of 0. POST OP INSTRUCTIONS The patient was provided a Pain Log to continue to record the patient's response to the target-specific procedure prior to the patient's follow-up visit with the referring physician. Additionally, specific post-injection care instructions and a contact number to our office were provided if concerns arise regarding possible complications associated with the procedure are suspected.
== END 2024-12-15 12:45 | disposition home or self-care (01) ==
PROVIDERS: PCP Family Medicine; Referring Provider Physical Medicine & Rehabilitation; Visit Provider Physical Medicine & Rehabilitation
DX: M47.816 Spondylosis without myelopathy or radiculopathy, lumbar region (principal); M47.817 Spondylosis without myelopathy or radiculopathy, lumbosacral region
CPT/HCPCS: 64635; 64636; 99152; 99153; J2250

== ENCOUNTER 2025-05-25 08:45 | Outpatient (CLI) | payer MEDICARE, OTHER, SELFPAY ==
[2025-05-25] VITALS (7 sets, daily range): BP systolic 108–138; BP diastolic 57–86; PULSE 62–78; RESP 10–18; TEMP 36.2; O2SAT 95–100
[2025-05-25] MEDS: MIDAZOLAM 2 MG/2 ML VIAL IV (11:24)
[2025-05-25] MEDS: BETAMETHASONE 30 MG/5 ML MDV 12 MG INJ (11:30)
--- NOTE | 2025-05-25 11:41 | P.PCN_ITS ---
Date/Time/Diagnoses Date of procedure: 05/25/25 Time of procedure: 11:41 Pre-procedure diagnosis: 1. HNP WITH RADICULAR FEATURES, 2. MULTILEVEL CENTRAL STENOSIS, Post-procedure diagnosis: same Procedure Notes Procedure: 1. FLUOROSCOPICALLY GUIDED CONTRAST CONTROLLED INTERLAMINAR EPIDURAL STEROID INJECTION -L4/5 Indications: Kiki is referred by Dr. Blanco for treatment of Bilateral Foraminal Stenosis R>L LE symptoms. Physician: Chacorta Tierney Total Fluoroscopy time (seconds): 8 Total sedation minutes: 13 Complications: none Procedure in detail & Post-procedure care: FINDINGS Multilevel Central Spinal Stenosis with Nerve Root Compression DESCRIPTION OF PROCEDURE Fluoroscopically guided, contrast-controlled L4/5 translaminar epidural steroid injection. Following review of allergy and review of potential side effects and complications, including, but not necessarily limited to, infection, allergic reaction, local tissue breakdown, temporary as well as permanent nerve injury, paralysis, stroke and possible , the patient indicated that the patient understood and agreed to proceed. An informed consent document was signed by the patient, witnessed by a nurse, and placed in the patient's chart. Additionally, other treatment options including modalities, medications, and physical therapy were reviewed with the patient. After review of previous anaesthesic history and IV conscious sedation the patient was deemed safe to proceed with today?s procedure with IV conscious sedation as ASA class II designation. Safety time-out was performed to confirm patient ID, procedure to be performed and site of procedure. IV sedation was accomplished with a combination of 2mg of Versed was administered by the RN after DO order, titrated to patient comfort during the course of the procedure while the patient remained responsive to all verbal commands In the prone position, following sterile prep and drape of the lumbar region, the L4/5 translaminar space was identified fluoroscopically. The skin was anesthetized via a 25-gauge, 1.5inch needle with 1% lidocaine solution. At this point, a 22-gauge short bevel spinal needle was atraumatically introduced and advanced under fluoroscopic guidance into the region of the L4/5 translaminar space. Depth was confirmed on lateral view. Radiological data, including multiple fluoroscopic views of the lumbar spine, reveal a spinal needle at the L4/5 translaminar space. Lateral views then show placement of the needle in the epidural space. Subsequent views show contrast material flowing superiorly and inferiorly in the epidural space. No vascular or intrathecal uptake is observed. At this point, using loss of resistance technique with saline and air, the epidural space was entered. This was confirmed following negative aspiration with injection of approximately 1.5cc of Isovue 200, showing excellent epidural flow without vascular or intrathecal uptake. At this point, 1cc of 0.25% marcaine solution combined with 3cc or 10mg of dexamethasone and 12mg betamethasone was injected without incident. The patient tolerated the procedure well without signs or symptoms of complications prior to transfer to the recovery area continued monitoring without incident. The patient was then transferred to the recovery area where they were observed for an appropriate period of time after the injection. The patient reported a VAS score of 6 prior to the procedure and a post- procedure VAS of 0. POST OP INSTRUCTIONS The patient was provided a Pain Log to continue to record their response to the target-specific procedure prior to follow-up visit with their referring physician. Additionally, specific post-injection care instructions and a contact number to our office were provided if concerns arise regarding possible complications associated with the procedure are suspected.
== END 2025-05-25 12:17 | disposition home or self-care (01) ==
PROVIDERS: PCP Family Medicine; Referring Provider Physical Medicine & Rehabilitation; Visit Provider Physical Medicine & Rehabilitation
DX: M51.16 Intervertebral disc disorders with radiculopathy, lumbar region (principal); M48.061 Spinal stenosis, lumbar region without neurogenic claudication
CPT/HCPCS: 62323; 99152; J0702; J1100; J2250